=== PATIENT | female | born 1985 | race African-American/Black ===

== ENCOUNTER 2017-02-10 20:28 | Emergency (ER) | payer OTHER ==
[~2017-02-10] VITALS: Ht 170.2 cm; Wt 95.7 kg
[2017-02-10] MEDS ORDERED: PREN29TA4 PO (21:20)
--- NOTE | 2017-02-10 23:20 | REPUSA ---
CT of the head Clinical history: Headache. Technique: Multiple axial CT images were obtained through the head without administration of contrast . Findings: The ventricles and sulci are symmetric bilaterally. There is no evidence of acute hemorrhag e or infarct. There is no midline shift, mass effect, or extra-axial fluid collection. The osseous st ructures are unremarkable. The visualized paranasal sinuses and mastoid air cells are clear. Impression: Negative study.
[2017-02-10 23:40] VITALS: BP 118/68
== END 2017-02-10 23:42 | disposition home or self-care (01) ==
LOC: M ED 20:28
DX: O99.89 Other specified diseases and conditions complicating pregnancy, childbirth and the puerperium (principal); R51 Headache; Z3A.20 20 weeks gestation of pregnancy

== ENCOUNTER 2017-06-16 14:07 | Inpatient (IN) | payer OTHER ==
[2017-06-16] MEDS ORDERED: NS 1,000 ML IV (14:59)
[2017-06-16] MEDS: LACTATED RINGER'S 1000 ML IV (15:21)
[2017-06-16 15:22] LABS: HEMOGLOBIN 9.6 g/dl (12.0-16.0); MEAN CORPUSCULAR HEMOGLOBIN 28.2 pg (27.0-33.0); MEAN CORPUSCULAR HGB CONC 33.1 g/dl (32.0-36.5); PLATELET COUNT, AUTOMATED 156 10^3/uL (150-450); RED BLOOD COUNT 3.41 10^6/uL (4.00-5.40); RED CELL DISTRIBUTION WIDTH 14.8 % (11.5-14.5); WHITE BLOOD COUNT 6.1 10^3/uL (4.0-10.0)
[2017-06-16 16:20] LABS: HBSAG L&D NEGATIVE (NEGATIVE)
[2017-06-16] MEDS ORDERED: BICITRA 30ML SOLN UDC As Ordered (17:00)
[2017-06-16] MEDS: LR 1,000 ML IV ×2 (17:08→19:15)
[2017-06-16] MEDS: BICITRA 30ML SOLN UDC PO (17:08)
[2017-06-16] MEDS ORDERED: MORPHINE PRES-FREE INJ 10 MG/10 ML VIAL (J2274) As Ordered (18:08)
[2017-06-16] MEDS ORDERED: OXYTOCIN INJ 10 UNITS/ML VIAL (J2590) As Ordered (18:08)
[2017-06-16] MEDS ORDERED: ONDANSETRON 4MG/2ML VIAL (J2405) As Ordered (18:08)
[2017-06-16] MEDS ORDERED: KETOROLAC 30 MG/ML VIAL (J1885) IV (18:30)
[2017-06-16] MEDS ORDERED: PROMETHAZINE 25 MG TAB PO (18:30)
[2017-06-16] MEDS ORDERED: LR 1,000 ML IV (18:30)
[2017-06-16] MEDS ORDERED: ONDANSETRON 4MG/2ML VIAL (J2405) IV ×2 (18:30→19:15)
[2017-06-16] MEDS ORDERED: fentaNYL 100 MCG/2 ML INJECTION (J3010) IV (19:15)
[2017-06-16] MEDS ORDERED: NALBUPHINE HCL 10 MG/ML AMP (J2300) IV (19:15)
[2017-06-16] MEDS: PROMETHAZINE INJ 25 MG/ML VIAL (J2550) IV (21:08)
[2017-06-17] MEDS: PERCOCET 5MG/325MG TAB PO ×5 (00:25→21:11)
[2017-06-17] MEDS: LR 1,000 ML IV (00:39)
[2017-06-17 07:11] LABS: HEMATOCRIT 28.2 % (36.0-47.0); HEMOGLOBIN 9.1 g/dl (12.0-16.0); MEAN CORPUSCULAR HEMOGLOBIN 27.7 pg (27.0-33.0); MEAN CORPUSCULAR HGB CONC 32.3 g/dl (32.0-36.5); MEAN CORPUSCULAR VOLUME 85.7 fl (80.0-96.0); PLATELET COUNT, AUTOMATED 139 10^3/uL (150-450); RED BLOOD COUNT 3.29 10^6/uL (4.00-5.40); RED CELL DISTRIBUTION WIDTH 14.9 % (11.5-14.5)
[2017-06-17] MEDS: PRENATAL VITAMINS CHEWABLE TABLET PO (08:00)
[2017-06-17] MEDS ORDERED: IBUPROFEN 800 MG TAB PO (20:30)
[2017-06-17] MEDS: DOCUSATE SODIUM 100 MG CAP PO (21:10)
[2017-06-18] MEDS: PERCOCET 5MG/325MG TAB PO ×2 (02:22→08:50)
[2017-06-18 05:30] LABS: HEMATOCRIT 27.7 % (36.0-47.0); HEMOGLOBIN 9.1 g/dl (12.0-16.0); MEAN CORPUSCULAR HEMOGLOBIN 28.3 pg (27.0-33.0); MEAN CORPUSCULAR HGB CONC 32.9 g/dl (32.0-36.5); PLATELET COUNT, AUTOMATED 161 10^3/uL (150-450); RED BLOOD COUNT 3.22 10^6/uL (4.00-5.40); RED CELL DISTRIBUTION WIDTH 15.3 % (11.5-14.5); WHITE BLOOD COUNT 9.7 10^3/uL (4.0-10.0)
[2017-06-18] MEDS: PRENATAL VITAMINS CHEWABLE TABLET PO (08:49)
[2017-06-18] MEDS: RHOGAM 300 MCG (1500 IU) INJ (J2790) IM (10:51)
[2017-06-18] MEDS: MOM 30ML SUSPENSION UDC PO (10:57)
[2017-06-18] MEDS: ADACEL/BOOSTRIX VACCINE (DIPHTH/PERTUSS/ACELL/TETANUS)0.5ML SYR (90715) IM (11:33)
[2017-06-18] MEDS: MEASLES,MUMPS,RUBELLA VACCINE INJ (MMR-II) (90707) SC (11:34)
== END 2017-06-18 13:10 | disposition home or self-care (01) | DRG 766 ==
LOC: M LDO 14:07 → M LDI 14:47 → M OBS 21:12
PROVIDERS: Student in an Organized Health Care Education/Training Program
PROC: 10D00Z1 Extraction of Products of Conception, Low, Open Approach (ICD-10-PCS; principal; 2017-06-16 17:17)
DX: O75.82 Onset (spontaneous) of labor after 37 completed weeks of gestation but before 39 completed weeks gestation, with delivery by (planned) cesarean section (principal); Z3A.38 38 weeks gestation of pregnancy; Z37.0 Single live birth; O99.824 Streptococcus B carrier state complicating childbirth; Z86.73 Personal history of transient ischemic attack (TIA), and cerebral infarction without residual deficits

== ENCOUNTER → 2017-10-04 | Outpatient (REF) | payer OTHER | LOC: M SFHCLERA 11:29 | DX: J02.9 Acute pharyngitis, unspecified (principal) ==

== ENCOUNTER 2018-02-24 08:47 | Day surgery (SDC) | payer OTHER ==
[~2018-02-24 08:47] MED LIST: LIDOCAINE 1% MDV 20ML VIAL SQ; LR 1,000 ML IV
[2018-02-24] MEDS: ACETAMINOPHEN 650 MG SUPP As Ordered ×2 (08:59)
[2018-02-24 09:20] LABS: HEMATOCRIT 35.5 % (36.0-47.0); HEMOGLOBIN 11.6 g/dl (12.0-15.5); MEAN CORPUSCULAR HEMOGLOBIN 27.8 pg (27.0-33.0); MEAN CORPUSCULAR HGB CONC 32.7 g/dl (32.0-36.5); MEAN CORPUSCULAR VOLUME 84.9 fl (80.0-96.0); PLATELET COUNT, AUTOMATED 279 10^3/uL (150-450); RED BLOOD COUNT 4.18 10^6/uL (4.00-5.40); RED CELL DISTRIBUTION WIDTH 12.7 % (11.5-14.5); WHITE BLOOD COUNT 5.8 10^3/uL (4.0-10.0)
[2018-02-24] MEDS: LR 1,000 ML IV ×2 (09:40)
[2018-02-24 10:17] LABS: ANION GAP 4 MEQ/L (8-16); BLOOD UREA NITROGEN 10 MG/DL (7-18); CALCIUM LEVEL 9.4 MG/DL (8.5-10.1); CARBON DIOXIDE LEVEL 30 MEQ/L (21-32); CHLORIDE LEVEL 106 MEQ/L (98-107); CREATININE FOR GFR 0.75 MG/DL (0.55-1.30); GLOMERULAR FILTRATION RATE > 60.0 (>60); GLUCOSE, FASTING 97 MG/DL (70-100); HCG, SERUM QUANTITATIVE < 1.0 MIU/ML; POTASSIUM SERUM 4.1 MEQ/L (3.5-5.1); SODIUM LEVEL 140 MEQ/L (136-145)
[2018-02-24] MEDS ORDERED: PROPOFOL 200 MG/20 ML VIAL As Ordered ×2 (11:35)
[2018-02-24] MEDS ORDERED: dexameTHASONE 4 MG/ML 1ML VIAL (J1100) As Ordered ×4 (11:35→11:36)
[2018-02-24] MEDS ORDERED: LIDOCAINE 2% INJ 100 MG/5 ML SDV (FOR ANES.) As Ordered ×2 (11:35)
[2018-02-24] MEDS ORDERED: KETOROLAC 60 MG/2 ML VIAL (J1885) As Ordered ×2 (11:36)
[2018-02-24] MEDS ORDERED: ONDANSETRON 4MG/2ML VIAL (J2405) As Ordered ×2 (11:36)
[2018-02-24] MEDS ORDERED: fentaNYL 100 MCG/2 ML INJECTION (J3010) As Ordered ×2 (11:37)
[2018-02-24] MEDS ORDERED: MIDAZOLAM INJ 2 MG/2 ML VIAL (J2250) As Ordered ×2 (11:37)
[2018-02-24] MEDS: ceFAZolin SOD 1 GM in D5W MINI-BAG PLUS 50 ML IV (12:15)
[2018-02-24] MEDS: ACETAMINOPHEN 650 MG SUPP PR ×2 (12:30)
[2018-02-24] MEDS ORDERED: PERCOCET 5MG/325MG TAB PO ×2 (13:30)
[2018-02-24] MEDS ORDERED: METOCLOPRAMIDE INJ 10MG/2ML VIAL (J2765) IV ×2 (13:30)
[2018-02-24] MEDS ORDERED: LR 1,000 ML IV ×2 (13:30)
[2018-02-24] MEDS ORDERED: ONDANSETRON 4MG/2ML VIAL (J2405) IV ×2 (13:30)
[2018-02-24] MEDS ORDERED: fentaNYL 100 MCG/2 ML INJECTION (J3010) IV ×2 (13:30)
[2018-02-24] MEDS ORDERED: KETOROLAC 30 MG/ML VIAL (J1885) IV ×2 (14:15)
== END 2018-02-24 14:27 | disposition home or self-care (01) ==
LOC: M SDC 08:47
DX: N89.8 Other specified noninflammatory disorders of vagina (principal); N88.2 Stricture and stenosis of cervix uteri; Z30.014 Encounter for initial prescription of intrauterine contraceptive device; K21.9 Gastro-esophageal reflux disease without esophagitis; M54.2 Cervicalgia; E66.9 Obesity, unspecified; Z68.33 Body mass index [BMI] 33.0-33.9, adult; Z86.73 Personal history of transient ischemic attack (TIA), and cerebral infarction without residual deficits
CPT/HCPCS: 57285

== ENCOUNTER → 2019-02-02 | Outpatient (REF) | payer OTHER ==
[~2019-02-02] MED LIST changes: +COLA100C5 PO; -LIDOCAINE 1% MDV 20ML VIAL SQ; -LR 1,000 ML IV; +OXYC1TAB23 PO; +PREN29TA4 PO; +TUMS500C PO; +TYLE500T78 PO
== END ==
LOC: M LAB REF 12:13
PROVIDERS: ATTEND Physician Assistant
DX: J02.9 Acute pharyngitis, unspecified (principal)